=== PATIENT | female | born 1995 | race Two or more races ===

== ENCOUNTER 2019-04-23 17:34 | Outpatient (AMB) | payer BC, SELFPAY ==
--- NOTE | 2019-04-23 18:30 | URCARE_ITS ---
Intake Ht./Wt. Decline/Exclusions Patient Declined Height and Weight this visit: No PT Meets exclusion criteria: No Vital Signs 04/23/19 18:31 Height 1.6 m Height Method Measured Weight 69.4 kg Weight Measurement Method Standing Scale BMI 27.1 Temp 98.9 F Temp Source Temporal Artery Scan Pulse 93 Pulse Source Monitor Respiration 18 BP 136/96 H Blood Pressure Source Automatic Cuff Blood Pressure Location Right Upper Arm Position Sitting Pulse Oximetry (%) 100 Oxygen Delivery Method Room Air Intake [place] Travel (last 14 days): No [facility] Travel (last 14 days): No Been in Contact w/Anyone Being Evaluated for Coronavirus (last 14 days): No Been in Close Contact w/Anyone Dx w/Coronavirus: No Zika Travel: No Been in contact w/anyone who has been Dx w/Zika Virus: No Been in contact w/anyone sick during travel outside country: No Patient >or equal to 18 years BMI outside of range 18.5-24.9: Yes Visit Reasons: UC Headache Primary Care Provider: Edith Amin Is patient in pain?: Yes Pain Location:: abd [place]/Numerical: 6 Pain Scale Used: Numeric (1 - 10) Triage Triage Allergy / Med Rec Allergies No Known Allergies Allergy (Verified 04/23/19 18:45) Past Medical History Reviewed and agree with Nursing documentation.: Yes HPI Headache Patient is a 24-year-old female presents to clinic with complaint of eating a chicken sandwich yesterday and having abdominal pain since then. Patient states she took Pepto-Bismol today, the pain has resolved. Patient states that this morning she woke up and felt as if the food was coming up her throat, and stai bette her tongue black, but denies any previous history of ulcers, or taking NSAIDs chronically, or any bleeding. Patient denies any significant abdominal pain, reports she has not had a bowel movement since yesterday, and currently is asymptomatic.\ Reports that the stain on her tongue is now resolved. Review of Systems (UC) Review of Systems All systems reviewed & no additional complaints except as documented GI Gastrointestinal: Reports as per HPI Exam (UC) Limitations: no limitations General Appearance: alert, in no apparent distress, comfortable, cooperative, healthy appearing, well developed and well groomed Head exam: atraumatic, normocephalic and normal inspection Eye exam: Reports normal appearance and Reports EOMI ENT exam: Present normal exam, normal external ear exam, TM's normal bilaterally, normal oropharynx and mucous membranes moist Neck Exam: Present normal inspection, non-tender, trachea midline, supple and full ROM SPO2%: 100% SPO2 type: Room Air SPO2% Normal/Abnormal: Normal Respiratory exam: Present normal lung sounds bilaterally, normal respiratory effort, able to speak in complete sentences and clear to ascultation bilaterally Cardiovascular exam: Present regular rate and regular rhythm Abdominal Exam: Present non-tender, non-distended, normal bowel sounds and soft; Absent guarding, Murillo's sign, obturator sign, rebound, rigidity, Rovsing's sign and tenderness at McBurney's Point Skin exam: Present warm, dry, intact and normal color Office Procedures UC Level of Care Nursing/Assessment/Reassessment Patient Status: Established Patient Nursing Assessment/Reassessment: Triage Asessment, Initial Vital Signs and RN General Assessments Coordination of Care: DC Instructions Simple 1-2 sets Established Patient Charge Established Patient Point Assignment: 40 Established Patient Point Assignment: EP Level 2 (40-75) Procedures: Pulse Ox reading: Yes Assessment and Plan Assessment & Plan (1) Acid reflux: Qualifiers: Esophagitis presence: without esophagitis Qualified Code(s): K21.9 - Gastro-esophageal reflux disease without esophagitis Plan Details Additional Comments: I emphasized the need for follow-up with their primary care provider. Failure to follow-up could result in a poor outcome or failure of treatment altogether. If the patient is unable to follow-up with their primary care provider, they are to return to the Emergency Department if their symptoms persist or worsen. I have reviewed the discharge treatment plan and follow-up instructions with the patient and/or patient representatives, addressed any concerns, and answered any and all questions. They have verbalized understanding of the discharge treatment plan. Primary Care Provider: Edith Amin Instructions: GERD Tips Control Acid Reflux Additional Information PA[employer] Supervising Physician: Hang Ingram
[2019-04-23 18:31] VITALS: BP 136/96; PULSE 93; RESP 18; TEMP 37.2; O2SAT 100; BMI 27.1
== END 2019-04-23 18:50 | disposition home or self-care (01) ==
PROVIDERS: PCP Family Medicine; Referring Provider Family Medicine; Visit Provider Physician Assistant
DX: I10 Essential (primary) hypertension (principal)

== ENCOUNTER 2024-08-22 23:37 | Emergency (ER) | payer BC, MEDICAID, SELFPAY ==
[2024-08-22 23:39] VITALS: BMI 28.3
[2024-08-23 01:02] VITALS: BP 158/92; PULSE 93; RESP 18; TEMP 36.9; O2SAT 99
--- NOTE | 2024-08-23 01:28 | PD.EDADULT ---
ED General RME/HPI General Chief complaint: General Adult/Misc Complain Stated complaint: CHEST AREA PAIN Time Seen by Provider: 08/23/24 01:03 Arrival date/time: 08/22/24 23:37 RME / HPI RME / HPI narrative: 29-year-old female presents to the ED with a complaint of left anterior chest pain that came on at rest. She describes the pain as a tightness with associated palpitations and some mild shortness of breath. She states that after the pain occurred she started feeling tightness in her left arm. She describes the pain as a 4/10 at its worst and is currently a 0/10. The pain lasts a few seconds and goes away on its own. She has no associated nausea or vomiting but states she did have 1 bout of diarrhea. Related Data Previous Rx's ?Medication ?Instructions ?Recorded ketorolac 10 mg tablet 10 mg PO BID #10 tabs 12/09/21 ondansetron 4 mg disintegrating 4 mg PO Q6H PRN nausea and 08/09/23 tablet vomiting #20 tabs Allergies Allergy/AdvReac Type Severity Reaction Status Date / Time No Known Allergies Allergy Verified 08/09/23 19:22 Review of Systems Review of Systems Systems Reviewed: All systems reviewed, normal except as documented Past Medical History Past Medical History CARDIAC: Negative Congestive Heart Failure RESPIRATORY: Negative Chronic Obstructive Pulmonary Disease (COPD) GENITOURINARY: Negative Renal Disease ENDOCRINE: Negative Diabetes Mellitus Type 1 or Diabetes Mellitus Type 2 Social History SMOKING STATUS: Never smoker ED Exam Narrative Physical exam: Alert and oriented, 29-year-old female, no acute distress. Lungs are clear, regular rate and rhythm without murmurs. No pain with AP or lateral chest compression. Abdomen is soft and nontender. Moves all extremities well. Neck is supple, no adenopathy. Course Course Course Narrative: 29-year-old female presents to the ED with a complaint of left anterior chest pain that came on at rest. She describes the pain as a tightness with associated palpitations and some mild shortness of breath. She states that after the pain occurred she started feeling tightness in her left arm. She describes the pain as a 4/10 at its worst and is currently a 0/10. The pain lasts a few seconds and goes away on its own. She has no associated nausea or vomiting but states she did have 1 bout of diarrhea. Alert and oriented, 29-year-old female, no acute distress. Lungs are clear, regular rate and rhythm without murmurs. No pain with AP or lateral chest compression. Abdomen is soft and nontender. Moves all extremities well. Neck is supple, no adenopathy. Quality Measures none Orders Category Date Time Status EKG (ED ONLY) *Do not use* NOW Care 08/23/24 01:31 Completed EKG (ED Only) Stat Exams 08/23/24 01:31 Ordered XR chest 2V Stat Exams 08/23/24 01:31 Taken B-Type Natriuretic Peptide Stat Lab 08/23/24 01:52 Completed CBC Stat Lab 08/23/24 01:52 Completed Comprehensive Metabolic Panel Stat Lab 08/23/24 01:52 Completed Drug Screen,Urine Stat Lab 08/23/24 01:48 Completed Free T4 (Free Thyroxine) Stat Lab 08/23/24 01:52 Completed LDH (Lactate Dehydrogenase) Stat Lab 08/23/24 01:52 Completed Magnesium Stat Lab 08/23/24 01:52 Completed Partial Thromboplastin Time Stat Lab 08/23/24 01:52 Completed Prothrombin Time with INR Stat Lab 08/23/24 01:52 Completed TSH [Thyroid Stimulating Hormone] Stat Lab 08/23/24 01:52 Completed Troponin I Stat Lab 08/23/24 01:52 Completed Urinalysis Stat Lab 08/23/24 01:48 Completed Vital Signs Vital signs: Vital Signs Temperature 98.5 F 08/23/24 01:02 Pulse Rate 93 08/23/24 01:02 Respiratory Rate 18 08/23/24 01:02 Blood Pressure 158/92 H 08/23/24 01:02 Pulse Oximetry (%) 99 08/23/24 01:02 Oxygen Delivery Method Room Air 08/23/24 01:02 Discharge Plan Plan Patient Disposition: HOME (Self Care) Discharge Disposition comment: Stable Prescriptions/Referrals Prescriptions/Med Rec: No Action ketorolac 10 mg tablet 10 mg PO BID Qty: 10 0RF ondansetron 4 mg tablet,disintegrating 4 mg PO Q6H PRN (Reason: nausea and vomiting) Qty: 20 0RF Referrals: Donald Lozada MD [Primary Care Provider] - In 1 week Problem List Clinical Impression: Non-cardiac chest pain Patient/Caregiver Discharge Instructions Education Materials: ED Chest Pain, Uncertain Cause Additional Instructions: Follow-up with your primary care physician in 24 to 48 hours. Return to the ED for any new or worsening symptoms. Print Language: Kazakh Stand Alone Forms: Melissa Award Info., Patient Portal Info Letter MIGUELANGEL/DALILA Supervising Physician MIGUELANGEL/DALILA Supervising Physician: Dr. Sang CORDOVA Narrative [facility] hospital course: 29-year-old female presents to the ED with a complaint of left anterior chest pain that came on at rest. She describes the pain as a tightness with associated palpitations and some mild shortness of breath. She states that after the pain occurred she started feeling tightness in her left arm. She describes the pain as a 4/10 at its worst and is currently a 0/10. The pain lasts a few seconds and goes away on its own. She has no associated nausea or vomiting but states she did have 1 bout of diarrhea. Alert and oriented, 29-year-old female, no acute distress. Lungs are clear, regular rate and rhythm without murmurs. No pain with AP or lateral chest compression. Abdomen is soft and nontender. Moves all extremities well. Neck is supple, no adenopathy. Clinical Information Provided by patient Medical Records Reviewed None Meds/Rx Considered, not Ordered None Labs/Rad/Tests considered, not Ordered None Chronic Illness/Social Conditions which may negatively complicate care or outcome(s)-explain: None or not applicable EKG EKG Interpretation narrative: Sinus rhythm, no T wave or ST changes. Negative STEMI Lab Interpretation Labs: interpreted by me Lab(s) interpretation(s): Labs reveal a normal white count, normal H&H, normal platelets, normal coags, chemistry panel reveals a minimally elevated glucose of 115, mildly elevated AST of 51, mildly elevated ALT of 68, normal alk phos, normal LDH, troponin, and BNP. TSH and free T4 are normal at 3.4 and 1.36, urinalysis is negative. Urine drug screen is also negative. Imaging Imaging interpretation: interpreted by me Provider imaging interpretation(s): No acute process Medication Administration(s) none N/A Diagnosis Differential diagnosis: Costochondritis, chest wall pain, ACS, pulmonary embolism, pneumonia Differential dx and/or dx ruled out: Pneumonia?no evidence on x-ray; pulmonary embolism?no tachypnea, tachycardia or hypoxia noted; ACS?negative troponin, LDH, negative EKG; Most likely dx, and/or detailed dx discussion: Chest wall pain Dispositon Disposition: Discharge Home
--- NOTE | 2024-08-23 01:31 | XR_ITS ---
Examination: PA lateral chest 2 views TECHNIQUE: Upright PA and lateral chest 2 views Date and time: August 23, 2024, 0139 hours INDICATIONS: Chest pain today FINDINGS: Normal heart size. Lungs are clear. The osseous structures are intact. IMPRESSION: No active disease
[2024-08-23 02:06] LABS: Collection Type, Urine Clean Catch
[2024-08-23 02:14] LABS: Bacteria,Urine Rare; Bilirubin,Urine Negative (Negative); Blood,Urine Negative (Negative); Clarity,Urine Clear (Clear/Hazy); Color,Urine Yellow (Lt Yel-Yel); Glucose, Urine Negative (Negative); Ketones,Urine Negative (Negative); Leukocyte Esterase,Urine Negative (Negative); Nitrite,Urine Negative (Negative); Protein,Urine Negative (Neg - Trace); RBC,Urine 1 /hpf (0-3); Specific Gravity,Urine 1.021 (1.001-1.035); Squamous Epithelial Cell,Urine 4 /hpf (0-5); WBC,Urine 2 /hpf (0-5)
[2024-08-23 02:17] LABS: Amphetamine/Methamp Scrn,U Negative (Negative); Barbiturate Screen,Urine Negative (Negative); Benzodiazepines Screen,Urine Negative (Negative); Benzoylecgonine Screen, Ur Negative (Negative); Fentanyl Screen,Urine Negative (Negative); Opiate Screen,Urine Negative (Negative); THC Screen,Urine Negative (Negative)
[2024-08-23 02:19] LABS: Basophils % (Auto) 0 % (0-2.5); Eosinophils # (Auto) 0.2 Thou/mm3 (0.0-0.5); Eosinophils % (Auto) 2 % (0-10); Hematocrit 42.7 % (36.0-46.0); Hemoglobin 14.6 g/dL (12.0-16.0); Immature Granulocytes % (Auto) 0 % (0-0); Immature Granulocytes Auto 0.03 Thou/mm3 (0.00-0.00); Lymphocytes # (Auto) 2.9 Thou/mm3 (1.0-4.8); Lymphocytes % (Auto) 27 % (10-50); Mean Corpuscular HGB Conc 34.2 g/dl (31.0-37.0); Mean Corpuscular Hemoglobin 30.2 pg (25.0-35.0); Mean Corpuscular Volume 88 fL (80-100); Monocytes # (Auto) 0.6 Thou/mm3 (0.0-0.8); Monocytes % (Auto) 6 % (0-12); Neutrophils # (Auto) 6.7 Thou/mm3 (1.8-7.7); Neutrophils % (Auto) 64 % (37-80); Nucleated Red Blood Cell % 0 /100 WBC (0); Platelet Count 284 Thou/mm3 (140-440); RDW Standard Deviation 39.8 fL (36.4-46.3); Red Blood Count 4.84 Miln/mm3 (4.00-5.20); White Blood Count 10.4 Thou/mm3 (3.6-11.0)
[2024-08-23 02:41] LABS: Partial Thromboplastin Time 27.7 Seconds (22.0-36.0); Prothrombin Time 10.6 Seconds (9.0-12.2)
[2024-08-23 02:46] LABS: B-Type Natriuretic Peptide 21 pg/mL (0-100)
[2024-08-23 02:50] LABS: Alanine Aminotransferase 68 U/L (10-49); Albumin, Serum 4.7 gm/dL (3.5-5.0); Albumin/Globulin Ratio 1.6 (1.2-2.2); Alkaline Phosphatase 100 U/L (46-116); Anion Gap 10 (7-16); Aspartate Amino Transferase 51 U/L (0-34); BUN/Creatinine Ratio 10 Ratio (12-20); Bilirubin,Total 1.3 mg/dL (0.3-1.2); Blood Urea Nitrogen 8 mg/dL (9-23); Calcium 9.4 mg/dL (8.3-10.6); Calcium (Corrected) 9.4 mg/dL (8.5-10.1); Carbon Dioxide 26.7 mMol/L (20.0-31.0); Chloride 104 mMol/L (98-107); Creatinine (Component) 0.8 mg/dL (0.6-1.3); Estimated Creatinine Clearance 106.5 mL/min (>60); Free T4 (Free Thyroxine) 1.36 ng/dL (0.89-1.76); Glucose 115 mg/dL (74-106); LDH (Lactate Dehydrogenase) 200 U/L (120-246); Osmolality,Calculated 280 (275-295); Potassium 3.6 mMol/L (3.4-5.1); Sodium 141 mMol/L (136-145); Total Protein 7.7 gm/dL (5.7-8.2); Troponin I < 0.002 ng/mL (0.0-0.045); eGFR > 60 See Note
[2024-08-23 04:11] VITALS: PULSE 75; RESP 16; O2SAT 98
== END 2024-08-23 04:12 | disposition home or self-care (01) ==
PROVIDERS: Physician Assistant; Emergency Provider Emergency Medicine; PCP Family Medicine
DX: R07.89 Other chest pain (principal)
CPT/HCPCS: 36415; 71046; 80053; 80307; 81001; 83615; 83735; 83880; 84439; 84443; 84484; 85025; 85610; 85730; 93005; 99283

== ENCOUNTER 2024-10-19 20:05 | Emergency (ER) | payer MEDICAID, SELFPAY ==
[2024-10-19 20:06] VITALS: BMI 29.2
[2024-10-19 20:27] VITALS: BP 134/86; PULSE 95; RESP 18; TEMP 37.3; O2SAT 98
--- NOTE | 2024-10-19 21:32 | EDNOTE_ITS ---
ED Anxiety RME/HPI General Chief Complaint: Anxiety Stated Complaint: ANXIETY X 1 WEEK Time Seen by Provider: 10/19/24 21:25 Arrival date/time: 10/19/24 20:05 Limitations: no limitations RME / HPI RME / HPI narrative: Dr. Posadas's Main ED Evaluation: 29yo female with no significant past medical history presents to the ED for a chief complaint of anxiety. Patient states she's felt anxious and has had bad thoughts since yesterday, which is unusual for her. She notes she was given a weight loss shot on 10/05/24 and has had intermittent diarrhea. She denies any SI, HI, or hallucinations. Related Data Previous Rx's ?Medication ?Instructions ?Recorded ketorolac 10 mg tablet 10 mg PO BID #10 tabs ondansetron 4 mg disintegrating 4 mg PO Q6H PRN nausea and 08/09/23 tablet vomiting #20 tabs Allergies Allergy/AdvReac Type Severity Reaction Status Date / Time No Known Allergies Allergy Verified 10/19/24 20:08 Review of Systems Review of Systems Systems Reviewed: All systems reviewed, normal except as documented Past Medical History Past Medical History CARDIAC: Negative Congestive Heart Failure RESPIRATORY: Negative Chronic Obstructive Pulmonary Disease (COPD) GENITOURINARY: Negative Renal Disease ENDOCRINE: Negative Diabetes Mellitus Type 1 or Diabetes Mellitus Type 2 Social History SMOKING STATUS: Never smoker ED Exam General Limitations: Present no limitations General appearance: Present alert and in no apparent distress Head Head exam: Present atraumatic Eye Eye exam: Present normal appearance, PERRL and EOMI ENT ENT exam: Present normal exam, normal oropharynx and mucous membranes moist Neck Neck exam: Present normal inspection, full ROM and trachea midline Chest Chest inspection: Present normal inspection and symmetric chest wall rise Respiratory Respiratory exam: Present normal lung sounds bilaterally Cardiovascular Cardiovascular exam: Present regular rate, normal rhythm and normal heart sounds Abdominal Exam Abdominal exam: Present soft and normal bowel sounds Extremities Exam Extremities exam: Present normal inspection and full ROM Back Exam Back exam: Present normal inspection and full ROM Neurological Exam Neurological exam: Present alert, oriented X3 and CN II-XII intact Psychiatric Psychiatric exam: Present normal affect and anxious Skin Skin exam: Present warm, dry, intact and normal color Course Course Course Narrative: Patient is not suicidal homicidal. At this time she does not need involuntary and does not want to talk to mental at this time. Discharged home. Return precautions given and understood peer Quality Measures none Reevaluation(s) Reevaluation #1: Patient states she feels significantly better and feels comfortable going home. Time: 23:51 Vital Signs Vital signs: Vital Signs Temperature 99.2 F 10/19/24 20:27 Pulse Rate 95 10/19/24 20:27 Respiratory Rate 18 10/19/24 20:27 Blood Pressure 134/86 H 10/19/24 20:27 Pulse Oximetry (%) 98 10/19/24 20:27 Oxygen Delivery Method Room Air 10/19/24 20:27 Anxiety MDM Narrative MDM Narrative: Scribe Attestation: 10/19/24 - Ching Kirkland am scribing for and in the presence of Dr. Posadas. Patient data External records reviewed:: [facility] [place] previous records (Per chart review, patient has no relevant previous ED visits.) Clinical information provided by:: patient Social determinants that could affect healthcare access:: none Patient has the following chronic illnesses:: none How is presenting disease/condition affected by chronic disease/condition?: no chronic disease Evaluation data The following diagnostics were reviewed and interpreted by me:: lab results Lab and/or radiology exams considered but not ordered:: none Interpretation Summary: CBC normal, CMP normal, Magnesium normal, TSH normal. Medications / Prescriptions Medications or Prescriptions considered but not ordered:: none Medication administrations:: Valium Consultations Consultation(s) initiated? (list below): No Diagnosis Differential diagnosis anxiety: hyperventilation, acute anxiety and other (electrolyte abnormality) Most likely diagnosis given after review of the tests above:: see clinical impression below Admission Indicated Admission indicated?: not indicated Admission Request Was there a request for admission?: No Disposition Plan Disposition Plan: Discharge Discharge Attestation Discharge Attestation: The patient and all family members were given an opportunity to ask questions and understood the discharge instructions. Discharge instructions specifically effects, indications for sooner follow up or return to the emergency department, and the expected course of current diagnosis. Patient condition: Stable Discharge Plan Plan Patient Disposition: HOME (Self Care) Patient condition on transfer: Stable Prescriptions/Referrals Prescriptions/Med Rec: No Action ketorolac 10 mg tablet 10 mg PO BID Qty: 10 0RF ondansetron 4 mg tablet,disintegrating 4 mg PO Q6H PRN (Reason: nausea and vomiting) Qty: 20 0RF Referrals: Donald Lozada MD [Primary Care Provider] - 10/21/24 Problem List Clinical Impression: Acute anxiety Patient/Caregiver Discharge Instructions Education Materials: ED Anxiety Reaction, ED Drug Reaction, Other Additional Instructions: Today your labs are normal and reassuring. This could be an side effect from the weight loss drug that you were taking that you are no longer on. However please follow-up with your primary care in the next 72 hours for recheck to see if you need any additional medications. Return to the emergency department if you having worsening symptoms, you feel worse, going hard to self or anybody else, or any other concerns Print Language: Amharic Stand Alone Forms: Melissa Award Info., Patient Portal Info Letter
[2024-10-19 21:37] VITALS: BP 129/95; PULSE 87; RESP 18; TEMP 36.9; O2SAT 98
[2024-10-19] MEDS: DIAZEPAM 5 MG TABLET 2.5 MG PO (21:57)
[2024-10-19 22:10] LABS: Basophils # (Auto) 0.1 Thou/mm3 (0.0-0.2); Basophils % (Auto) 1 % (0-2.5); Eosinophils # (Auto) 0.2 Thou/mm3 (0.0-0.5); Eosinophils % (Auto) 2 % (0-10); Hematocrit 43.5 % (36.0-46.0); Hemoglobin 14.9 g/dL (12.0-16.0); Immature Granulocytes Auto 0.06 Thou/mm3 (0.00-0.00); Lymphocytes # (Auto) 3.4 Thou/mm3 (1.0-4.8); Lymphocytes % (Auto) 33 % (10-50); Mean Corpuscular HGB Conc 34.3 g/dl (31.0-37.0); Mean Corpuscular Hemoglobin 30.2 pg (25.0-35.0); Mean Corpuscular Volume 88 fL (80-100); Monocytes # (Auto) 0.6 Thou/mm3 (0.0-0.8); Monocytes % (Auto) 6 % (0-12); Neutrophils # (Auto) 6.0 Thou/mm3 (1.8-7.7); Neutrophils % (Auto) 58 % (37-80); Nucleated Red Blood Cell # 0.00 Thou/mm3 (0.00-0.00); Nucleated Red Blood Cell % 0 /100 WBC (0); Platelet Count 362 Thou/mm3 (140-440); RDW Standard Deviation 40.4 fL (36.4-46.3); Red Blood Count 4.94 Miln/mm3 (4.00-5.20); White Blood Count 10.3 Thou/mm3 (3.6-11.0)
[2024-10-19 22:32] LABS: Anion Gap 7 (7-16); BUN/Creatinine Ratio 6 Ratio (12-20); Blood Urea Nitrogen < 5 mg/dL (9-23); Calcium 9.2 mg/dL (8.3-10.6); Carbon Dioxide 23.7 mMol/L (20.0-31.0); Chloride 108 mMol/L (98-107); Creatinine (Component) 0.8 mg/dL (0.6-1.3); Estimated Creatinine Clearance 104.3 mL/min (>60); Glucose 113 mg/dL (74-106); Magnesium 1.9 mg/dL (1.6-2.6); Osmolality,Calculated 275 (275-295); Potassium 3.7 mMol/L (3.4-5.1); Sodium 139 mMol/L (136-145); Thyroid Stimulating Hormone 2.56 uIU/mL (0.55-4.78); eGFR > 60 See Note
== END 2024-10-19 23:18 | disposition home or self-care (01) ==
PROVIDERS: Emergency Provider Emergency Medicine; PCP Family Medicine
DX: F41.9 Anxiety disorder, unspecified (principal)
CPT/HCPCS: 36415; 80048; 83735; 84443; 85025; 99282; A9270